=== PATIENT | male | born 1960 | race African-American/Black ===

== ENCOUNTER 2023-01-12 17:00 | Inpatient (IN) | payer OTHER, SELFPAY ==
[2023-01-12 18:11] LABS: #Monocytes 0.9 10x3/uL (0.0-1.1); #Neutrophils 2.2 10x3/uL (1.5-8.4); %Basophils 0.4 % (0.0-2.0); %Eosinophils 0.8 % (0.0-6.0); %Lymphocytes 40.8 % (18.0-47.0); %Monocytes 16.1 % (0.0-10.0); %Neutrophils 41.5 % (40.0-75.0); Hemoglobin 15.7 g/dL (13.5-17.5); Mean Corpuscular HGB CONC 33.7 g/dL (32.0-36.0); Mean Corpuscular Volume 97.9 fl (81.2-95.1); Mean Platelet Volume 10.8 fl (7.4-10.4); Platelet Count 169 10x3/uL (150-450); RBC Distribution Width 14.8 % (11.5-14.5); Red Blood Cell (RBC) Count 4.76 10x6/uL (4.32-5.72); White Blood Cell (WBC) Count 5.3 10x3/uL (3.5-10.5)
[2023-01-12 18:14] LABS: ALT (SGPT) 27 U/L (8-55); AST (SGOT) 34 U/L (5-34); Albumin 3.6 g/dL (3.4-4.8); Alkaline Phosphatase 77 U/L (40-110); Anion Gap 21 mmol/L (10-20); BUN (Urea Nitrogen) 27 mg/dL (8.4-25.7); Bilirubin, Total 0.4 mg/dL (0.2-1.2); CK (CPK) 339 U/L (30-200); Calc. Creatinine Clearance 0 mL/min (70-130); Carbon Dioxide 21 mmol/L (23-31); Chloride 104 mmol/L (98-107); Estimated GFR 23; Globulin 3.7 g/dL (2.4-3.5); Glucose 112 mg/dL (80-115); Potassium 3.6 mmol/L (3.5-5.1); Protein, Total 7.3 g/dL (5.8-8.1); Sodium 142 mmol/L (136-145)
[2023-01-12 18:15] LABS: Acetaminophen Less than 10 mcg/mL (10.0-30.0); Alcohol Less than 10.0 mg/dL (Less than 10); Salicylate Less than 8.0 mg/dL (15.0-30.0)
[2023-01-12 18:39] LABS: CKMB 1.2 ng/mL (0-6.6)
[2023-01-12 19:21] LABS: Lymphocytes 34 % (21-51); Monocytes 10 % (0-10); Reactive Lymphocytes 5 % (0-10)
[2023-01-12 19:22] LABS: Platelet Adequacy Comment Appears Adequate; RBC Morph Comment Within Normal Limits
[2023-01-12] MEDS ORDERED: Calcium Carbonate 500 MG ChewTAB PO PRN (20:35)
[2023-01-12] MEDS ORDERED: Guaifenesin DM 100-10/5 ML UDCUP PO PRN (20:35)
[2023-01-12] MEDS ORDERED: Senokot S 8.6-50 MG TAB PO PRN (20:35)
[2023-01-12] MEDS ORDERED: Acetaminophen 325 MG TAB PO PRN (20:35)
[2023-01-12] MEDS ORDERED: Ondansetron PF 4 MG/2 ML Vial IVP PRN (20:35)
[2023-01-12] MEDS ORDERED: Famotidine/PF 20 mg/2ml Vial SLOW IVP SCH (20:45)
[2023-01-12 21:34] LABS: CKMB 1.3 ng/mL (0-6.6)
[2023-01-13] MEDS: Lactated Ringer's 1,000 ML IV SCH ×4 (01:00→22:03)
[2023-01-13] MEDS: Pantoprazole 40 MG VIAL IVP SCH ×3 (02:13→21:30)
[2023-01-13 02:44] VITALS: BMI 21.4
[2023-01-13 02:45] LABS: Bilirubin Neg (Negative); Blood, Urine Negative (Negative); Clarity Clear (Clear); Glucose, Urine (Dipstick) Normal (Negative); Ketone, Urine Negative (Negative); Leukocyte 500 (Negative); Nitrite Negative (Negative); Protein, Urine (Dipstick) Negative (Neg-Trace); Specific Gravity, Urine 1.005 (1.005-1.030)
[2023-01-13 02:55] LABS: Amphetamine Not Detected (NotDetected); Barbiturates Screen Not Detected (NotDetected); Benzodiazepine Screen Not Detected (NotDetected); Cocaine Metabolite Screen Detected (NotDetected); Methadone Not Detected (NotDetected); Methamphetamine Not Detected (NotDetected); Opiate Screen Not Detected (NotDetected); Oxycodone Screen Not Detected (NotDetected); Phencyclidine (PCP) Not Detected (NotDetected); THC/Cannabinoid Screen Detected (NotDetected); Tricyclic Screen Not Detected (NotDetected)
[2023-01-13 03:12] LABS: Bacteria/HPF 1+ HPF (None Seen); RBC/HPF None Seen HPF (0-3); Squamous Epithelial 0-3 HPF (0-3)
[2023-01-13 04:12] LABS: #Eosinphils 0.1 10x3/uL (0.0-0.5); #Monocytes 0.7 10x3/uL (0.0-1.1); #Neutrophils 2.3 10x3/uL (1.5-8.4); %Basophils 0.4 % (0.0-2.0); %Eosinophils 1.1 % (0.0-6.0); %Lymphocytes 45.7 % (18.0-47.0); %Monocytes 12.1 % (0.0-10.0); %Neutrophils 40.5 % (40.0-75.0); Hemoglobin 13.9 g/dL (13.5-17.5); Mean Corpuscular HGB CONC 33.7 g/dL (32.0-36.0); Mean Corpuscular Hemoglobin 32.7 pg (27.0-33.0); Mean Corpuscular Volume 96.9 fl (81.2-95.1); Platelet Count 175 10x3/uL (150-450); RBC Distribution Width 14.9 % (11.5-14.5); Red Blood Cell (RBC) Count 4.25 10x6/uL (4.32-5.72); White Blood Cell (WBC) Count 5.7 10x3/uL (3.5-10.5)
[2023-01-13 04:27] LABS: Anion Gap 10 mmol/L (10-20); BUN (Urea Nitrogen) 22 mg/dL (8.4-25.7); CK (CPK) 231 U/L (30-200); Calc. Creatinine Clearance 40 mL/min (70-130); Calcium 8.6 mg/dL (7.8-10.44); Carbon Dioxide 27 mmol/L (23-31); Chloride 105 mmol/L (98-107); Estimated GFR 39; Glucose 101 mg/dL (80-115); Magnesium 1.9 mg/dL (1.6-2.6); Potassium 4.3 mmol/L (3.5-5.1); Sodium 138 mmol/L (136-145)
[2023-01-13] MEDS: cefTRIAXone\\ROCEPHIN 1 GM in Sodium Chloride 0.9% 100 ML IVPB SCH (06:05)
[2023-01-13] MEDS: Multivitamin W/ Minerals 1 TAB PO SCH (08:41)
[2023-01-13] MEDS: Thiamine 100 MG TAB PO SCH (08:41)
[2023-01-13] MEDS: Folic Acid 1 MG TAB PO SCH (08:41)
[2023-01-13] MEDS ORDERED: FLUoxetine HCl 10 MG CAP PO SCH (21:00)
[2023-01-13] MEDS ORDERED: AMOXicillin 250 MG CAP PO SCH (21:30)
[2023-01-13] MEDS ORDERED: Clarithromycin 250 MG TAB PO SCH (21:30)
[2023-01-14 03:18] LABS: Hemoglobin 13.6 g/dL (13.5-17.5); Mean Corpuscular HGB CONC 34.1 g/dL (32.0-36.0); Mean Corpuscular Hemoglobin 32.9 pg (27.0-33.0); Mean Corpuscular Volume 96.4 fl (81.2-95.1); Mean Platelet Volume 11.1 fl (7.4-10.4); Platelet Count 162 10x3/uL (150-450); RBC Distribution Width 14.3 % (11.5-14.5); Red Blood Cell (RBC) Count 4.14 10x6/uL (4.32-5.72); White Blood Cell (WBC) Count 4.5 10x3/uL (3.5-10.5)
[2023-01-14 03:39] LABS: Anion Gap 9 mmol/L (10-20); BUN (Urea Nitrogen) 14 mg/dL (8.4-25.7); CK (CPK) 134 U/L (30-200); Calc. Creatinine Clearance 55 mL/min (70-130); Calcium 9.1 mg/dL (7.8-10.44); Carbon Dioxide 25 mmol/L (23-31); Chloride 107 mmol/L (98-107); Estimated GFR 58; Glucose 104 mg/dL (80-115); Magnesium 1.8 mg/dL (1.6-2.6); Potassium 4.1 mmol/L (3.5-5.1); Sodium 137 mmol/L (136-145)
[2023-01-14] MEDS: Lactated Ringer's 1,000 ML IV SCH (03:47)
[2023-01-14] MEDS: cefTRIAXone\\ROCEPHIN 1 GM in Sodium Chloride 0.9% 100 ML IVPB SCH (03:49)
[2023-01-14 03:58] LABS: MDiff Complete? YES
[2023-01-14 04:15] LABS: Platelet Adequacy Comment Appears Adequate
[2023-01-14 04:16] LABS: RBC Morph Comment Within Normal Limits
[2023-01-14 04:17] LABS: Lymphocytes 49 % (21-51); Monocytes 17 % (0-10); Neutrophil 34 % (42-75)
[2023-01-14] MEDS ORDERED: AMOXicillin 250 MG CAP PO SCH (09:00)
[2023-01-14] MEDS ORDERED: Clarithromycin 250 MG TAB PO SCH (09:00)
[2023-01-14] MEDS: Thiamine 100 MG TAB PO SCH (09:18)
[2023-01-14] MEDS: Multivitamin W/ Minerals 1 TAB PO SCH (09:19)
[2023-01-14] MEDS: Folic Acid 1 MG TAB PO SCH (09:19)
[2023-01-14 11:57] VITALS: BP 159/74; TEMP 98
== END 2023-01-14 13:10 | disposition home or self-care (01) | DRG 683 ==
LOC: CSHERS 17:00 → CSHTELE 20:17 → CSHERS 23:17 → UNDOADMIN 01-13 00:39 → CSHTELE 01-13 00:39
PROVIDERS: ADMIT Student in an Organized Health Care Education/Training Program; ATTEND Nurse Practitioner Family
DX: N17.9 Acute kidney failure, unspecified (principal); M62.82 Rhabdomyolysis; F41.9 Anxiety disorder, unspecified; F17.210 Nicotine dependence, cigarettes, uncomplicated; F12.90 Cannabis use, unspecified, uncomplicated; F14.90 Cocaine use, unspecified, uncomplicated; F10.90 Alcohol use, unspecified, uncomplicated; K21.9 Gastro-esophageal reflux disease without esophagitis; F32.A Depression, unspecified; E86.0 Dehydration; I95.1 Orthostatic hypotension; R77.8 Other specified abnormalities of plasma proteins; E78.00 Pure hypercholesterolemia, unspecified; F43.10 Post-traumatic stress disorder, unspecified; I25.10 Atherosclerotic heart disease of native coronary artery without angina pectoris; F20.9 Schizophrenia, unspecified; I10 Essential (primary) hypertension; F19.10 Other psychoactive substance abuse, uncomplicated; B96.81 Helicobacter pylori [H. pylori] as the cause of diseases classified elsewhere; Z79.83 Long term (current) use of bisphosphonates; Z79.1 Long term (current) use of non-steroidal anti-inflammatories (NSAID); Z95.818 Presence of other cardiac implants and grafts; Z86.73 Personal history of transient ischemic attack (TIA), and cerebral infarction without residual deficits; Z95.5 Presence of coronary angioplasty implant and graft
CPT/HCPCS: 36415; 36416; 70450; 71045; 76770; 80048; 80053; 80306; 80307; 81001; 82550; 82553; 83735; 84439; 84443; 84484; 85025; 87086; 87338; 93005; 93306; 99285; C9113; J0696; J1650; J3490; J7120; S0028

== ENCOUNTER 2023-12-10 16:54 | Inpatient (IN) | payer OTHER ==
[2023-12-10] MEDS ORDERED: Senokot S 8.6-50 MG TAB PO PRN (20:10)
[2023-12-10] MEDS ORDERED: Acetaminophen 325 MG TAB PO PRN (20:10)
[2023-12-10] MEDS ORDERED: Guaifenesin DM 100-10/5 ML UDCUP PO PRN (20:10)
[2023-12-10] MEDS ORDERED: Calcium Carbonate 500 MG ChewTAB PO PRN (20:10)
[2023-12-10] MEDS ORDERED: Promethazine HCl 12.5 MG in Sodium Chloride 0.9% 50 ML IVPB PRN (20:16)
[2023-12-10 20:29] VITALS: BMI 17.4
[2023-12-10] MEDS: NS 0.9% w/ 40 MEQ KCL 1,000 ML IV SCH (21:18)
[2023-12-10] MEDS: Potassium Bicarbonate/Cit Ac 20 MEQ TAB PO SCH (21:18)
[2023-12-10] MEDS: Magnesium 2 GM/50 ML(in water) 2 GM in Premix 1 BAG IVPB SCH (21:18)
[2023-12-10] MEDS: Lorazepam 2 MG/ML VIAL SLOW IVP SCH ×2 (21:18→22:43)
[2023-12-10] MEDS: Calcium Gluc 4.6 MEQ/10 ML (100 MG/ML) SLOW IVP SCH (21:19)
[2023-12-10] MEDS: Famotidine/PF 20 mg/2ml Vial SLOW IVP SCH (21:19)
[2023-12-10] MEDS: Nicotine 14 MG PATCH TD SCH (21:20)
[2023-12-10 22:37] LABS: Anion Gap 13 mmol/L (10-20); BUN (Urea Nitrogen) 35 mg/dL (8.4-25.7); CK (CPK) 151 U/L (30-200); Calc. Creatinine Clearance 26 mL/min (70-130); Calcium 8.6 mg/dL (7.8-10.44); Carbon Dioxide 33 mmol/L (23-31); Chloride 96 mmol/L (98-107); Estimated GFR 29; Glucose 134 mg/dL (80-115); Magnesium 1.9 mg/dL (1.6-2.6); Potassium 3.4 mmol/L (3.5-5.1); Sodium 139 mmol/L (136-145)
[2023-12-11 03:33] LABS: Actual Bicarbonate (HCO3v) 34.5 mEq/L (22-28); Analyzer IN Cardio CS ICU; Calcium, Ionized (venous) 1.11 mmol/L (1.16-1.32); Chloride (VBG) 97 mmol/L (98-106); Critical Notified By: CP.PH; Hematocrit-VBG 41 % (42.0-52.0); Potassium (VBG) 3.59 mmol/L (3.70-5.30); Puncture Site Other Site; Sodium 139 mmol/L (133-146); pH (venous) 7.457 (7.32-7.43)
[2023-12-11] MEDS: Potassium Chloride 20 MEQ TAB PO SCH ×2 (03:35→17:59)
[2023-12-11 03:57] LABS: #Basophils 0.05 10x3/uL (0.0-0.2); #Eosinphils 0.84 10x3/uL (0.0-0.5); #Monocytes 0.57 10x3/uL (0.0-1.1); #Neutrophils 2.38 10x3/uL (1.5-8.4); %Basophils 0.8 % (0.0-2.0); %Eosinophils 13.4 % (0.0-6.0); %Lymphocytes 38.4 % (18.0-47.0); %Monocytes 9.1 % (0.0-10.0); %Neutrophils 38.1 % (40.0-75.0); Hematocrit 38.3 % (38.8-50.0); Hemoglobin 13.5 g/dL (13.5-17.5); Mean Corpuscular HGB CONC 35.2 g/dL (32.0-36.0); Mean Corpuscular Volume 96.5 fl (81.2-95.1); Mean Platelet Volume 11.3 fl (7.4-10.4); Platelet Count 159 10x3/uL (150-450); RBC Distribution Width 13.1 % (11.5-14.5); Red Blood Cell (RBC) Count 3.97 10x6/uL (4.32-5.72); White Blood Cell (WBC) Count 6.3 10x3/uL (3.5-10.5)
[2023-12-11 04:10] LABS: Anion Gap 13 mmol/L (10-20); BUN (Urea Nitrogen) 29 mg/dL (8.4-25.7); Calc. Creatinine Clearance 30 mL/min (70-130); Calcium 8.8 mg/dL (7.8-10.44); Carbon Dioxide 33 mmol/L (23-31); Chloride 98 mmol/L (98-107); Estimated GFR 34; Glucose 124 mg/dL (80-115); Magnesium 2.3 mg/dL (1.6-2.6); Potassium 3.5 mmol/L (3.5-5.1); Sodium 140 mmol/L (136-145)
[2023-12-11 04:30] LABS: Free T4 (Free Thyroxine) 0.9 ng/dL (0.70-1.48); Thyroid Stimulating Hormone 0.184 uIU/mL (0.35-4.94)
[2023-12-11 10:28] VITALS: BMI 17.9
[2023-12-11] MEDS ORDERED: Hydrocortisone Acetate 25 MG Suppository PR PRN (15:36)
[2023-12-11] MEDS: Polyethylene Glycol 3350 17 GM Packet PO SCH (18:00)
[2023-12-11] MEDS: Enoxaparin 40 MG (0.4 mL) SYRINGE SC SCH (21:33)
[2023-12-11] MEDS: Atorvastatin Calcium 40 MG TAB PO SCH (21:33)
[2023-12-12] MEDS: Lactated Ringer's 1,000 ML IV SCH (03:42)
[2023-12-12 03:54] LABS: Anion Gap 10 mmol/L (10-20); BUN (Urea Nitrogen) 17 mg/dL (8.4-25.7); Calc. Creatinine Clearance 47 mL/min (70-130); Calcium 8.5 mg/dL (7.8-10.44); Carbon Dioxide 26 mmol/L (23-31); Chloride 107 mmol/L (98-107); Estimated GFR 59; Glucose 107 mg/dL (80-115); Potassium 3.8 mmol/L (3.5-5.1); Sodium 139 mmol/L (136-145)
[2023-12-12] MEDS: Aspirin 81 mg Enteric Coated Tablet PO SCH (09:56)
[2023-12-12] MEDS: Polyethylene Glycol 3350 17 GM Packet PO SCH (09:56)
[2023-12-12] MEDS: Ondansetron PF 4 MG/2 ML Vial IVP PRN (09:56)
[2023-12-13] MEDS: Lorazepam 2 MG/ML VIAL SLOW IVP SCH (01:25)
[2023-12-13] MEDS: Pantoprazole 40 MG VIAL IVP SCH (01:26)
[2023-12-13 04:24] LABS: #Basophils 0.06 10x3/uL (0.0-0.2); #Eosinphils 0.84 10x3/uL (0.0-0.5); #Monocytes 0.46 10x3/uL (0.0-1.1); #Neutrophils 2.57 10x3/uL (1.5-8.4); %Eosinophils 13.7 % (0.0-6.0); %Lymphocytes 35.8 % (18.0-47.0); %Monocytes 7.5 % (0.0-10.0); %Neutrophils 41.7 % (40.0-75.0); Hematocrit 37.6 % (38.8-50.0); Hemoglobin 13.2 g/dL (13.5-17.5); Mean Corpuscular HGB CONC 35.1 g/dL (32.0-36.0); Mean Corpuscular Hemoglobin 33.8 pg (27.0-33.0); Mean Corpuscular Volume 96.2 fl (81.2-95.1); Platelet Count 142 10x3/uL (150-450); RBC Distribution Width 13.2 % (11.5-14.5); Red Blood Cell (RBC) Count 3.91 10x6/uL (4.32-5.72); White Blood Cell (WBC) Count 6.2 10x3/uL (3.5-10.5)
[2023-12-13 04:34] LABS: Anion Gap 11 mmol/L (10-20); BUN (Urea Nitrogen) 12 mg/dL (8.4-25.7); Calc. Creatinine Clearance 60 mL/min (70-130); Calcium 8.8 mg/dL (7.8-10.44); Carbon Dioxide 25 mmol/L (23-31); Chloride 107 mmol/L (98-107); Estimated GFR 80; Glucose 98 mg/dL (80-115); Magnesium 1.4 mg/dL (1.6-2.6); Sodium 139 mmol/L (136-145)
[2023-12-13] MEDS ORDERED: Magnesium Sulfate 4 GM in Sodium Chloride 0.9% 250 ML 250 ML IVPB SCH (08:30)
[2023-12-13] MEDS: Pantoprazole DR 40 MG TAB PO SCH (09:06)
[2023-12-13] MEDS: Magnesium 2 GM/50 ML(in water) 2 GM in Premix 1 BAG IVPB SCH (09:09)
[2023-12-14 04:10] LABS: #Basophils 0.06 10x3/uL (0.0-0.2); #Eosinphils 1.04 10x3/uL (0.0-0.5); #Monocytes 0.73 10x3/uL (0.0-1.1); #Neutrophils 2.82 10x3/uL (1.5-8.4); %Basophils 0.9 % (0.0-2.0); %Eosinophils 14.8 % (0.0-6.0); %Lymphocytes 33.8 % (18.0-47.0); %Monocytes 10.4 % (0.0-10.0); %Neutrophils 39.8 % (40.0-75.0); Hematocrit 40.4 % (38.8-50.0); Hemoglobin 13.9 g/dL (13.5-17.5); Mean Corpuscular HGB CONC 34.4 g/dL (32.0-36.0); Mean Corpuscular Hemoglobin 33.5 pg (27.0-33.0); Mean Corpuscular Volume 97.3 fl (81.2-95.1); Mean Platelet Volume 11.3 fl (7.4-10.4); Platelet Count 152 10x3/uL (150-450); RBC Distribution Width 13.2 % (11.5-14.5); Red Blood Cell (RBC) Count 4.15 10x6/uL (4.32-5.72); White Blood Cell (WBC) Count 7.1 10x3/uL (3.5-10.5)
[2023-12-14 04:38] LABS: Anion Gap 11 mmol/L (10-20); BUN (Urea Nitrogen) 11 mg/dL (8.4-25.7); Calc. Creatinine Clearance 53 mL/min (70-130); Carbon Dioxide 26 mmol/L (23-31); Chloride 107 mmol/L (98-107); Estimated GFR 69; Glucose 90 mg/dL (80-115); Lactic Acid 1.5 mmol/L (0.5-2.2); Magnesium 1.9 mg/dL (1.6-2.6); Phosphorus 1.8 mg/dL (2.3-4.7); Potassium 3.9 mmol/L (3.5-5.1); Sodium 140 mmol/L (136-145)
[2023-12-14 04:46] LABS: Troponin I 0.011 ng/mL (< 0.028)
[2023-12-14] MEDS: Magnesium 2 GM/50 ML(in water) 2 GM in Premix 1 BAG IVPB SCH (10:09)
[2023-12-14] MEDS: Potassium Phosphate 15 MMOL in Sodium Chloride 0.9% 100 ML IVPB SCH (11:23)
[2023-12-14 17:28] VITALS: TEMP 98.4
[2023-12-14 17:29] VITALS: BP 132/78
== END 2023-12-14 14:00 | disposition short-term general hospital (02) | DRG 918 ==
LOC: INTOOBSV 19:38 → CSHTELE 19:38 → OBSVTOIN 20:36 → EEVIPCON 20:36
PROVIDERS: ADMIT Family Medicine; ATTEND Internal Medicine
DX: T47.1X2A Poisoning by other antacids and anti-gastric-secretion drugs, intentional self-harm, initial encounter (principal); B37.81 Candidal esophagitis; E87.3 Alkalosis; N17.9 Acute kidney failure, unspecified; E87.6 Hypokalemia; K21.9 Gastro-esophageal reflux disease without esophagitis; I25.10 Atherosclerotic heart disease of native coronary artery without angina pectoris; F41.9 Anxiety disorder, unspecified; F43.10 Post-traumatic stress disorder, unspecified; F31.9 Bipolar disorder, unspecified; F20.9 Schizophrenia, unspecified; F17.210 Nicotine dependence, cigarettes, uncomplicated; I12.9 Hypertensive chronic kidney disease with stage 1 through stage 4 chronic kidney disease, or unspecified chronic kidney disease; N18.30 Chronic kidney disease, stage 3 unspecified; F19.10 Other psychoactive substance abuse, uncomplicated; E86.0 Dehydration; Z79.899 Other long term (current) drug therapy; Z86.73 Personal history of transient ischemic attack (TIA), and cerebral infarction without residual deficits
CPT/HCPCS: 36415; 74220; 80048; 82550; 82805; 83605; 83735; 84100; 84439; 84443; 84484; 85025; C9113; J0612; J1650; J2060; J2405; J3475; J3480; J3490; J7120; S0028